=== PATIENT | female | born 1965 | race Caucasian/White ===

== ENCOUNTER 2016-12-21 19:02 | Emergency (ER) | payer MEDICARE, OTHER ==
[~2016-12-21 19:02] MED LIST: CLON0.5T PO; DIVA250T PO; GABA-585 PO; GLIP10TA13 PO; GLIP5TAB10 PO; HYDR25TA9 PO; LOSA50TA6 PO; MIRT7.5T8 PO; PRAZ2CAP2 PO; QUET50TA PO; TRAZ50TA15 PO
[2016-12-21 19:05] VITALS: BP 163/95
--- NOTE | 2016-12-21 19:55 | ED.ADGEN ---
Past Medical History Past Medical History: Bipolar, Diabetes-Type II, High Cholesterol, Hypertension Additional Past Medical Histor: suicidal idealation,homelessness,PTSD Past Surgical History: Cholecystectomy Alcohol Use: None Drug Use: None Adult General Chief Complaint Chief Complaint: HYPERGLYCEMIA HPI HPI Patient is a 51 year old female presents emergency department complaining of hyperglycemia. The patient unfortunately had her refrigerator break in time that was repaired she got to the pharmacy to get more insulin and they did not have any of her diabetic medications. She does have a follow-up appointment with her doctor in 48 hours. Patient denies any symptoms since her blood sugar was reading high. So she decided to come to the emergency department for some fluids and to get her blood sugars down prior to her appointment in 2 days. Other than high blood sugar readings patient has no complaints. Review of Systems Review of Systems Constitutional: Denies fever or chills. [] Eyes: Denies change in visual acuity. [] HENT: Denies nasal congestion or sore throat. [] Respiratory: Denies cough or shortness of breath. [] Cardiovascular: Denies chest pain or edema. [] GI: Denies abdominal pain, nausea, vomiting, bloody stools or diarrhea. [] : Denies dysuria. [] Musculoskeletal: Denies back pain or joint pain. [] Integument: Denies rash. [] Neurologic: Denies headache, focal weakness or sensory changes. [] Endocrine: Denies polyuria or polydipsia. [] Lymphatic: Denies swollen glands. [] Psychiatric: Denies depression or anxiety. [] Current Medications Current Medications Current Medications Medications (Trade) Dose Ordered Sig/Arvind Start Time Stop Time Status Last Admin Dose Admin Insulin Human Regular 10 unit 10 unit 1X ONCE 12/21/16 20:30 12/21/16 20:31 DC 12/21/16 20:40 10 UNIT Sodium Chloride (Iv Sodium Chloride 0.9% 1000ml Bag) 1,000 ml @ 1,000 mls/hr 1X ONCE 12/21/16 21:00 12/21/16 21:59 Allergies Allergies Allergies Coded Allergies Type Severity Reaction Last Updated Verified Sulfa (Sulfonamide Antibiotics) Allergy Intermediate 09/30/15 Yes acetaminophen Allergy Intermediate 09/30/15 Yes clindamycin Allergy Intermediate 09/30/15 Yes doxycycline Allergy Intermediate 09/30/15 Yes exenatide Allergy Intermediate 09/30/15 Yes hydrocodone Allergy Intermediate 09/30/15 Yes metformin Allergy Intermediate 09/30/15 Yes vancomycin Allergy Intermediate 09/30/15 Yes Insulins Allergy Mild "years ago" unknown reaction 12/21/16 Yes Physical Exam Physical Exam Constitutional: Well developed, well nourished, no acute distress, non-toxic appearance. [] HENT: Normocephalic, atraumatic, bilateral external ears normal, oropharynx moist, no oral exudates, nose normal. [] Eyes: PERRLA, EOMI, conjunctiva normal, no discharge. [] Neck: Normal range of motion, no tenderness, supple, no stridor. [] Cardiovascular:Heart rate regular rhythm, no murmur [] Lungs & Thorax: Bilateral breath sounds clear to auscultation [] Abdomen: Bowel sounds normal, soft, no tenderness, no masses, no pulsatile masses. [] Skin: Warm, dry, no erythema, no rash. [] Back: No tenderness, no CVA tenderness. [] Extremities: No tenderness, no cyanosis, no clubbing, ROM intact, no edema. [] Neurologic: Alert and oriented X 3, normal motor function, normal sensory function, no focal deficits noted. [] Psychologic: Affect normal, judgement normal, mood normal. [] Current Patient Data Vital Signs Vital Signs Date Time Temp Pulse Resp B/P Pulse Ox O2 Delivery O2 Flow Rate FiO2 12/21/16 19:05 97.7 86 20 163/95 96 Room Air 97.7 Lab Values Laboratory Tests Test 12/21/16 19:35 12/21/16 20:20 12/21/16 20:26 Glucose (Fingerstick) 524mg/dL (70-99) *H Urine Collection Type Unknown Urine Color Yellow Urine Clarity Clear Urine pH 5.5 Urine Specific [place] 1.015 Urine Protein Negativemg/dL (NEG-TRACE) Urine Glucose (UA) >=1000mg/dL (NEG) Urine Ketones (Stick) Negativemg/dL (NEG) Urine Blood Negative (NEG) Urine Nitrite Negative (NEG) Urine Bilirubin Negative (NEG) Urine Urobilinogen Dipstick 0.2mg/dL (0.2 mg/dL) Urine Leukocyte Esterase Negative (NEG) Urine RBC 0/HPF (0-2) Urine WBC 0/HPF (0-4) Urine Squamous Epithelial Cells Occ/LPF Urine Bacteria 0/HPF (0-FEW) White Blood Count 8.0x10^3/uL (4.0-11.0) Red Blood Count 4.16x10^6/uL (3.50-5.40) Hemoglobin 12.2g/dL (12.0-15.5) Hematocrit 36.3% (36.0-47.0) Mean Corpuscular Volume 87fL (79-100) Mean Corpuscular Hemoglobin 29pg (25-35) Mean Corpuscular Hemoglobin Concent 34g/dL (31-37) Red Cell Distribution Width 13.7% (11.5-14.5) Platelet Count 225x10^3/uL (140-400) Neutrophils (%) (Auto) 61% (31-73) Lymphocytes (%) (Auto) 28% (24-48) Monocytes (%) (Auto) 4% (0-9) Eosinophils (%) (Auto) 5% (0-3) H Basophils (%) (Auto) 1% (0-3) Neutrophils # (Auto) 4.9x10^3uL (1.8-7.7) Lymphocytes # (Auto) 2.2x10^3/uL (1.0-4.8) Monocytes # (Auto) 0.4x10^3/uL (0.0-1.1) Eosinophils # (Auto) 0.4x10^3/uL (0.0-0.7) Basophils # (Auto) 0.1x10^3/uL (0.0-0.2) Sodium Level 134mmol/L (136-145) L Potassium Level 3.6mmol/L (3.5-5.1) Chloride Level 95mmol/L (98-107) L Carbon Dioxide Level 28mmol/L (21-32) Anion Gap 11 (6-14) Blood Urea Nitrogen 16mg/dL (7-20) Creatinine 1.2mg/dL (0.6-1.0) H Estimated GFR (Cockcroft-Gault) 47.7 Glucose Level 487mg/dL (70-99) H Calcium Level 9.5mg/dL (8.5-10.1) Laboratory Tests 12/21/16 20:26 Laboratory Tests 12/21/16 20:26 EKG EKG [] Radiology/Procedures Radiology/Procedures [] Course & Med Decision Making Course & Med Decision Making Pertinent Labs and Imaging studies reviewed. (See chart for details) Overall, the patient had a very reassuring workup. She is hyperglycemic but shows no indication of DKA. She would like to go home. I do not find this to be unreasonable. She will of course return emergency department sooner if she has any new or worsening symptoms. [] Dragon Disclaimer Dragon Disclaimer This electronic medical record was generated, in whole or in part, using a voice recognition dictation system. LIGIA HENDERSON MD Dec 21, 2016 19:55
[2016-12-21] MEDS ORDERED: IV NORMAL SALINE 1000ML BAG 1,000 ML IV ONE ×3 (20:00→21:30)
[2016-12-21 20:28] LABS: BILIRUBIN,URINE NEGATIVE (NEG); GLUCOSE,URINE >=1000 mg/dL (NEG); NITRITE,URINE NEGATIVE (NEG); PH,URINE 5.5; PROTEIN,URINE NEGATIVE (NEG-TRACE); UROBILINOGEN,URINE 0.2 mg/dL (0.2 mg/dL)
[2016-12-21] MEDS ORDERED: INSULIN REGULAR 100 UNIT/ML 10ML VIAL. IV ONE (20:30)
[2016-12-21 20:39] LABS: BASO # 0.1 x10^3/uL (0.0-0.2); BASO % 1 % (0-3); EOS % 5 % (0-3); HEMATOCRIT 36.3 % (36.0-47.0); HEMOGLOBIN 12.2 g/dL (12.0-15.5); LYMPH # 2.2 x10^3/uL (1.0-4.8); LYMPH % 28 % (24-48); MEAN CORPUSCULAR HEMOGLOBIN 29 pg (25-35); MEAN CORPUSCULAR HGB CONC 34 g/dL (31-37); MEAN CORPUSCULAR VOLUME 87 fL (79-100); MONO % 4 % (0-9); NEUT % 61 % (31-73); PLATELET COUNT 225 x10^3/uL (140-400); RED BLOOD COUNT 4.16 x10^6/uL (3.50-5.40); RED CELL DISTRIBUTION WIDTH 13.7 % (11.5-14.5)
[2016-12-21 20:41] LABS: BACTERIA,URINE 0 /HPF (0-FEW); RBC,URINE 0 /HPF (0-2); SQUAMOUS EPITHELIAL CELL,UR OCC /LPF; WBC,URINE 0 /HPF (0-4)
[2016-12-21 20:54] LABS: CALCIUM 9.5 mg/dL (8.5-10.1); CREATININE 1.2 mg/dL (0.6-1.0); GFR 47.7; POTASSIUM 3.6 mmol/L (3.5-5.1)
--- NOTE | 2016-12-22 12:58 | EKG ---
[facility] [address] [place] [address] Test Date: 2016-12-21 Test Time: 19:41:48 Pat Name: ELIZABETH KAM Department: Room: Gender: F Heating Operators Engineer: : 1965 Requested By: LIGIA HENDERSON Order Number: [id number] Reading MD: Measurements Intervals [place] Rate: 94 P: 43 ND: 214 QRS: -30 QRSD: 98 T: 47 QT: 374 QTc: 468 Interpretive Statements SINUS RHYTHM PROLONGED ND INTERVAL ABNORMAL LEFT AXIS DEVIATION R-S TRANSITION ZONE IN V LEADS DISPLACED TO THE LEFT ABNORMAL ECG RI6.01 No previous ECG available for comparison
== END 2016-12-21 21:57 | disposition home or self-care (01) ==
LOC: ER 19:02
DX: E11.65 Type 2 diabetes mellitus with hyperglycemia (principal); E78.00 Pure hypercholesterolemia, unspecified; I10 Essential (primary) hypertension; F43.10 Post-traumatic stress disorder, unspecified; F31.9 Bipolar disorder, unspecified; Z90.49 Acquired absence of other specified parts of digestive tract; Z79.4 Long term (current) use of insulin; Z88.2 Allergy status to sulfonamides; Z88.1 Allergy status to other antibiotic agents; Z88.6 Allergy status to analgesic agent; Z88.5 Allergy status to narcotic agent; Z88.8 Allergy status to other drugs, medicaments and biological substances
CPT/HCPCS: 36415; 80048; 81001; 82947; 85027; 93005; 96361; 96374; 99285; J7030; J1815

== ENCOUNTER 2017-01-17 19:20 | Inpatient (IN) | payer MEDICARE, OTHER ==
[~2017-01-17] VITALS: Ht 170.2 cm; Wt 102.1 kg
[2017-01-17] MEDS ORDERED: IV NORMAL SALINE 1000ML BAG 1,000 ML IV ONE (20:00)
[2017-01-17] MEDS ORDERED: fentaNYL PF VIAL 100 MCG/2 ML VIAL IV PRN ×2 (20:00→21:30)
[2017-01-17 20:10] LABS: BASO # 0.1 x10^3/uL (0.0-0.2); BASO % 1 % (0-3); BILIRUBIN,URINE NEGATIVE (NEG); EOS % 4 % (0-3); GLUCOSE,URINE >=1000 mg/dL (NEG); HEMATOCRIT 36.2 % (36.0-47.0); HEMOGLOBIN 12.4 g/dL (12.0-15.5); LYMPH # 2.1 x10^3/uL (1.0-4.8); LYMPH % 23 % (24-48); MEAN CORPUSCULAR HEMOGLOBIN 30 pg (25-35); MEAN CORPUSCULAR HGB CONC 34 g/dL (31-37); MEAN CORPUSCULAR VOLUME 87 fL (79-100); MONO % 5 % (0-9); NEUT % 68 % (31-73); NITRITE,URINE NEGATIVE (NEG); PLATELET COUNT 218 x10^3/uL (140-400); PROTEIN,URINE NEGATIVE (NEG-TRACE); RED BLOOD COUNT 4.18 x10^6/uL (3.50-5.40); RED CELL DISTRIBUTION WIDTH 13.4 % (11.5-14.5); UROBILINOGEN,URINE 0.2 mg/dL (0.2 mg/dL); WHITE BLOOD COUNT 9.1 x10^3/uL (4.0-11.0)
[2017-01-17 20:17] LABS: BACTERIA,URINE FEW /HPF (0-FEW); RBC,URINE 0 /HPF (0-2); SQUAMOUS EPITHELIAL CELL,UR FEW /LPF; WBC,URINE 0 /HPF (0-4)
[2017-01-17 20:40] LABS: CALCIUM 9.4 mg/dL (8.5-10.1); CREATININE 1.5 mg/dL (0.6-1.0); GFR 36.8; MAGNESIUM 1.7 mg/dL (1.8-2.4); PHOSPHORUS 3.7 mg/dL (2.6-4.7); POTASSIUM 3.7 mmol/L (3.5-5.1)
[2017-01-17] MEDS ORDERED: INSULIN REGULAR VIAL 150 UNIT in 0.9 % SODIUM CHLORIDE 150ML 150 ML IV PRN (21:15)
[2017-01-17] MEDS ORDERED: POTASSIUM CHLORIDE 10MEQ 100 ML IV PRN ×2 (21:15)
[2017-01-17] MEDS ORDERED: ONDANSETRON PF 4 MG/2 ML VIAL. IV PRN (21:30)
[2017-01-17] MEDS ORDERED: IV 1/2 NORMAL SALINE 1,000 ML IV SCH (22:00)
[2017-01-17 22:09] VITALS: BP 136/83
[2017-01-17] MEDS ORDERED: IV NORMAL SALINE 1000ML BAG 1,000 ML IV SCH (22:30)
[2017-01-17] MEDS ORDERED: traZODone 50 MG TABLET. PO PRN (22:30)
--- NOTE | 2017-01-17 23:35 | PHYS DOC ---
Past Medical History Past Medical History: Bipolar, Diabetes-Type II, High Cholesterol, Hypertension Additional Past Medical Histor: PTSD Past Surgical History: Cholecystectomy Alcohol Use: None Drug Use: None Adult General Chief Complaint Chief Complaint: HYPERGLYCEMIA HPI HPI Patient is a 52 year old female who presents with hyperglycemia. The patient has history of insulin dependent diabetes using insulin pen unknown name. She states 1 week ago she packed boxes to move to a new home, lost insulin needles at that time. She says she uses insulin PRN sliding scale but has been unable to administer since that time. Today glucometer reading "high" which is > 600. She reports polyuria & polydipsia. She denies fevers/chills, chest pain, SOB , abdominal pain, vomiting, edema. PCP is Dr. Bey. Review of Systems Review of Systems Constitutional: Denies fever or chills Eyes: Denies change in visual acuity HENT: Denies nasal congestion or sore throat Respiratory: Denies cough or shortness of breath Cardiovascular: Denies chest pain or edema GI: Denies abdominal pain, nausea, vomiting, or diarrhea : Denies dysuria or hematuria Endocrine: reports polyuria & polydipsia. Musculoskeletal: Denies back pain or joint pain Integument: Denies rash or skin lesions Neurologic: Denies headache, focal weakness or sensory changes Current Medications Current Medications Current Medications Medications (Trade) Dose Ordered Sig/Arvind Start Time Stop Time Status Last Admin Dose Admin Fentanyl Citrate (Fentanyl 2ml Vial) 50 mcg PRN Q15MIN PRN 01/17/17 20:00 01/18/17 19:59 01/17/17 20:15 50 MCG Sodium Chloride 1,000 ml @ 1,000 mls/hr 1X ONCE 01/17/17 20:00 01/17/17 20:59 DC 01/17/17 20:15 1,000 MLS/HR Allergies Allergies Allergies Coded Allergies Type Severity Reaction Last Updated Verified Sulfa (Sulfonamide Antibiotics) Allergy Intermediate 09/30/15 Yes acetaminophen Allergy Intermediate 09/30/15 Yes clindamycin Allergy Intermediate 09/30/15 Yes doxycycline Allergy Intermediate 09/30/15 Yes exenatide Allergy Intermediate 09/30/15 Yes hydrocodone Allergy Intermediate 09/30/15 Yes metformin Allergy Intermediate 09/30/15 Yes vancomycin Allergy Intermediate 09/30/15 Yes Insulins Allergy Mild "years ago" unknown reaction 12/21/16 Yes Physical Exam Physical Exam Constitutional: obese, no acute distress, non-toxic appearance. HENT: Normocephalic, atraumatic, bilateral external ears normal, oropharynx moist, nose normal. Eyes: PERRLA, EOMI, conjunctiva normal, no discharge. Neck: supple, no stridor. Cardiovascular: RRR, no murmurs, no edema. Lungs & Thorax: LCTAB, no wheezing, no respiratory distress. Abdomen: soft, nontender, nondistended. Skin: Warm, dry, no erythema, no rash. Back: No tenderness. Extremities: No tenderness, no edema. Neurologic: Alert and oriented X 3, no focal deficits noted. Psychologic: Affect normal, judgement normal, mood normal. Current Patient Data Vital Signs Vital Signs Date Time Temp Pulse Resp B/P (MAP) Pulse Ox O2 Delivery O2 Flow Rate FiO2 01/17/17 20:15 82 16 136/66 (89) 94 01/17/17 19:35 98.1 Room Air 98.1 Lab Values Laboratory Tests Test 01/17/17 19:50 White Blood Count 9.1 x10^3/uL (4.0-11.0) Red Blood Count 4.18 x10^6/uL (3.50-5.40) Hemoglobin 12.4 g/dL (12.0-15.5) Hematocrit 36.2 % (36.0-47.0) Mean Corpuscular Volume 87 fL (79-100) Mean Corpuscular Hemoglobin 30 pg (25-35) Mean Corpuscular Hemoglobin Concent 34 g/dL (31-37) Red Cell Distribution Width 13.4 % (11.5-14.5) Platelet Count 218 x10^3/uL (140-400) Neutrophils (%) (Auto) 68 % (31-73) Lymphocytes (%) (Auto) 23 % (24-48) L Monocytes (%) (Auto) 5 % (0-9) Eosinophils (%) (Auto) 4 % (0-3) H Basophils (%) (Auto) 1 % (0-3) Neutrophils # (Auto) 6.2 x10^3uL (1.8-7.7) Lymphocytes # (Auto) 2.1 x10^3/uL (1.0-4.8) Monocytes # (Auto) 0.4 x10^3/uL (0.0-1.1) Eosinophils # (Auto) 0.3 x10^3/uL (0.0-0.7) Basophils # (Auto) 0.1 x10^3/uL (0.0-0.2) Urine Collection Type Unknown Urine Color Straw Urine Clarity Clear Urine pH 6.0 Urine Specific [place] 1.020 Urine Protein Negative mg/dL (NEG-TRACE) Urine Glucose (UA) >=1000 mg/dL (NEG) Urine Ketones (Stick) Negative mg/dL (NEG) Urine Blood Negative (NEG) Urine Nitrite Negative (NEG) Urine Bilirubin Negative (NEG) Urine Urobilinogen Dipstick 0.2 mg/dL (0.2 mg/dL) Urine Leukocyte Esterase Negative (NEG) Urine RBC 0 /HPF (0-2) Urine WBC 0 /HPF (0-4) Urine Squamous Epithelial Cells Few /LPF Urine Bacteria Few /HPF (0-FEW) Sodium Level 124 mmol/L (136-145) L Potassium Level 3.7 mmol/L (3.5-5.1) Chloride Level 87 mmol/L (98-107) L Carbon Dioxide Level 27 mmol/L (21-32) Anion Gap 10 (6-14) Blood Urea Nitrogen 26 mg/dL (7-20) H Creatinine 1.5 mg/dL (0.6-1.0) H Estimated GFR (Cockcroft-Gault) 36.8 Glucose Level 736 mg/dL (70-99) *H Calcium Level 9.4 mg/dL (8.5-10.1) Phosphorus Level 3.7 mg/dL (2.6-4.7) Magnesium Level 1.7 mg/dL (1.8-2.4) L Laboratory Tests 01/17/17 19:50 Laboratory Tests 01/17/17 19:50 EKG EKG [] Radiology/Procedures Radiology/Procedures [] Course & Med Decision Making Course & Med Decision Making Pertinent Labs and Imaging studies reviewed. (See chart for details) Patient presents with hyperglycemia. She has been noncompliant with insulin. Denies any other complaints. On BMP glucose is > 700, no anion gap or acidosis , no ketonuria. Not DKA but significantly hyperglycemic. Gave 1L NS bolus here during initial workup. Recommend admission to the hospital for further evaluation & treatment. The patient agrees with plan of care. Discussed with Dr. Rodrigues who agrees to admit to inpatient status on behalf of Dr. Bey. Agrees with initiation of insulin gtt & DKA protocol for extreme hyperglycemia. Patient admitted in stable condition. Critical care time: 35 minutes [] Dragon Disclaimer Dragon Disclaimer This electronic medical record was generated, in whole or in part, using a voice recognition dictation system. Departure Departure Impression: Primary Impression: Hyperglycemia Additional Impressions: Hyponatremia Hypochloremia Hypomagnesemia Disposition: ADMITTED INPATIENT Admitting Physician: Manuel Bey Condition: STABLE Referrals: MANUEL BEY MD (PCP) Problem Qualifiers KEEGAN AHUMADA MD January 17, 2017 23:35
[2017-01-17 23:47] LABS: CALCIUM 9.4 mg/dL (8.5-10.1); CREATININE 1.2 mg/dL (0.6-1.0); GFR 47.6; MAGNESIUM 1.6 mg/dL (1.8-2.4); POTASSIUM 3.4 mmol/L (3.5-5.1)
--- NOTE | 2017-01-17 23:54 | EKG ---
[facility] [address] [place] [address] Test Date: 2017-01-17 Test Time: 22:46:58 Pat Name: ELIZABETH KAM Department: Room: 9 Gender: F Converting Operator: SUMIT : 1965 Requested By: SAM BUTLER Order Number: [id number] Reading MD: Sharonda Romeo Measurements Intervals [place] Rate: 77 P: 50 MD: 228 QRS: -24 QRSD: 100 T: 40 QT: 338 QTc: 384 Interpretive Statements SINUS RHYTHM PROLONGED MD INTERVAL LEFTWARD AXIS QRS(T) CONTOUR ABNORMALITY CONSIDER ANTEROSEPTAL MYOCARDIAL DAMAGE ABNORMAL ECG Electronically Signed On 01-19-2017 18:08:21 CDT by Sharonda Romeo
[2017-01-18] MEDS: ENOXAPARIN 40 MG/0.4 ML SYRINGE. SQ SCH ×2 (00:11→00:15)
[2017-01-18] MEDS: POTASSIUM CHLORIDE 10MEQ 100 ML IV PRN ×2 (00:18→01:56)
[2017-01-18] MEDS ORDERED: QUET200T4 PO (00:51)
[2017-01-18] MEDS ORDERED: METF500T4 PO (00:51)
[2017-01-18] MEDS ORDERED: LOSA1TAB17 PO (00:51)
[2017-01-18] MEDS ORDERED: FENO145T2 PO (00:52)
[2017-01-18] MEDS ORDERED: LITH450T PO (00:54)
--- NOTE | 2017-01-18 00:56 | ACF ---
Admission Forms Criteria DIABETES Clinical Indications for Admission to Inpatient Care (Place 'X' for any and all applicable criteria): Admission is indicated by presence of ALL (if I & II) or ANY ONE (if III or IV) of the following (1)(2)(3)(4): [X]I. Diabetes is uncontrolled as indicated by ANY ONE of the following: [ ]a) Diabetic ketoacidosis as indicated by ALL of the following (8): [ ]i) Hyperglycemia (eg, plasma glucose greater than 200 mg/ dL (11.1 mmol/L)) [ ]ii) Acidosis (eg, arterial pH less than 7.30, serum bicarbonate level less than 15 mEq/L (mmol/L)) [ ]iii) Moderate ketonuria or ketonemia [ ]b) Hyperglycemic hyperosmolar state as indicated by ALL of the following(9)(10): [ ]i) Neurologic dysfunction (eg, stupor, coma, hemiparesis , seizure)(13) [ ]ii) Plasma glucose greater than 600 mg/dL (33.3 mmol/L) [ ]iii) Serum osmolality greater than 320 mOsm/kg (mmol/kg) [X]c) Severe signs or symptoms secondary to hyperglycemia indicated by ANY ONE of the following: [ ]i) Altered mental status(10) [ ]ii) Significant hypovolemia or dehydration [ ]iii) Intractable nausea or vomiting [ ]iv) Unexplained fever or severe infection [X]v) Severe electrolyte abnormality (eg, hypokalemia, hyperkalemia, hypernatremia) [X]II. Management at other levels of care (Also use Diabetes: Observation Care as appropriate) is not feasible because of ANY ONE of the following: [ ]a) Condition was not adequately corrected with treatment at other levels of care. [X]b) Treatment at other levels of care is not appropriate because of condition severity (eg, hyperosmolar coma). [ ]III. Contraindications and/or Inappropriate clinical situations for Observational Care in patients with Diabetes, when ANY ONE of the following is required: [ ]a) Patient require specific diagnostic workup or therapeutic intervention 22 [ ]b) Patient with abnormal vital signs or altered mental status 23 [ ]IV. General contraindications and/or Inappropriate clinical situations for Observational Care in patients with Diabetes, when ANY ONE of the following is required: [ ]a) Prediction of prolongation of LOS based on ANY ONE of the following may be considered as a contraindication for observational care 2, 3, 4, 5, 6, 7, 8, 9, 10, 11 [ ]i) Age > 65 yrs. [ ]ii) Patient arriving by ambulance [ ]iii) Patient with high acuity [ ]iv) Patient requiring vital sign monitoring [ ]v) Patient on IV medication [ ]b) Systolic blood pressures 180mmHg 3,12 [ ]c) Patient with altered mental status including delirium and other alteration of consciousness, (3) [ ]d) Patient whose discharge disposition will be to a retirement home or rehabilitation home should not be managed in Emergency Department Observation Unit. CMS rule requires 3 days hospital stay before such placement.3,13 [ ]e) Patient with failure to thrive due to broad array of etiologies 3,16,17 [ ]f) Inability to ambulate 3,14 Extended stay beyond goal length of stay may be needed for(3)(20): [ ]a) Treatment of precipitating causes [ ]b) Development of hypoglycemia [ ]c) Complications of treatment [ ]d) Complications of decompensated diabetes (eg, acute gastric dilatation, persistent metabolic or neurologic derangement) [ ]e) Active Comorbidities [ ]f) Older patients( 65 years or older) The original [email or web address] content created by [email or web address] has been revised. The portions of the content which have been revised are identified through the use of italic text or in bold,and [facility] has neither reviewed nor approved the modified material. All other unmodified content is copyright [email or web address]. Please see references footnoted in the original [facility] edition 2016 Admission Criteria Met?: Yes IRVING NICHOLAS January 18, 2017 00:56
[2017-01-18 03:00] VITALS: BP 128/76
[2017-01-18 05:46] LABS: BASO # 0.1 x10^3/uL (0.0-0.2); BASO % 1 % (0-3); EOS % 5 % (0-3); HEMATOCRIT 35.9 % (36.0-47.0); LYMPH # 3.2 x10^3/uL (1.0-4.8); LYMPH % 32 % (24-48); MEAN CORPUSCULAR HEMOGLOBIN 29 pg (25-35); MEAN CORPUSCULAR HGB CONC 33 g/dL (31-37); MEAN CORPUSCULAR VOLUME 88 fL (79-100); MONO % 5 % (0-9); NEUT % 58 % (31-73); PLATELET COUNT 233 x10^3/uL (140-400); RED BLOOD COUNT 4.11 x10^6/uL (3.50-5.40); RED CELL DISTRIBUTION WIDTH 13.5 % (11.5-14.5)
[2017-01-18 06:31] LABS: ALBUMIN 3.4 g/dL (3.4-5.0); ALBUMIN/GLOBULIN RATIO 1.1 (1.0-1.7); CALCIUM 9.4 mg/dL (8.5-10.1); GFR 58.7; MAGNESIUM 1.6 mg/dL (1.8-2.4); POTASSIUM 3.5 mmol/L (3.5-5.1); TOTAL BILIRUBIN 0.3 mg/dL (0.2-1.0); TOTAL PROTEIN 6.6 g/dL (6.4-8.2)
[2017-01-18 06:35] LABS: CHOLESTEROL/HDL RATIO 7.3
[2017-01-18 07:00] VITALS: BP 110/65
[2017-01-18] MEDS: GABAPENTIN 100 MG CAPSULE. PO SCH ×2 (08:59→14:00)
[2017-01-18] MEDS ORDERED: QUEtiapine 25 MG TABLET. PO SCH (09:00)
[2017-01-18] MEDS ORDERED: LOSARTAN POTASSIUM 50 MG TABLET. PO SCH (09:00)
[2017-01-18] MEDS ORDERED: MIRTAZAPINE 7.5 MG TABLET. PO SCH (09:00)
--- NOTE | 2017-01-18 10:11 | RAD ---
Indication hyperglycemia. Protocol study. A single view of the chest was obtained and is compared to an exam 03/01/2016. Heart size is slightly enlarged but unchanged. There is no congestive heart failure. There is no focal infiltrate significant pleural fluid collection or pneumothorax. Overall a significant change in the appearance of the chest is not seen. IMPRESSION: No acute finding. No significant change
[2017-01-18] MEDS ORDERED: INSULIN DETEMIR 300 UNITS/3 ML INSULN.PEN. SQ STA (10:40)
--- NOTE | 2017-01-18 10:58 | PDOC ---
Provider Note Provider Note Pt seen.H&P dictated. #[id number] SAM BUTLER MD January 18, 2017 10:58
[2017-01-18 11:00] VITALS: BP 108/73
[2017-01-18] MEDS ORDERED: POTASSIUM CHLORIDE 20 MEQ TABLET.ER. PO ONE (11:00)
[2017-01-18] MEDS ORDERED: INSULIN DETEMIR 300 UNITS/3 ML INSULN.PEN. SQ SCH ×2 (11:00→21:00)
[2017-01-18] MEDS ORDERED: DEXTROSE 50% 25 GM / 50ML DISP.SYRIN. IV PRN ×2 (11:00)
[2017-01-18] MEDS ORDERED: MAGNESIUM SULFATE 2GM 50 ML IV ONE (11:00)
[2017-01-18] MEDS ORDERED: QUEtiapine 100 MG TABLET. PO SCH (11:15)
[2017-01-18 11:17] LABS: LI 0.6 mmol/L (0.6-1.2)
[2017-01-18] MEDS ORDERED: INSULIN ASPART 300 UNITS/3 ML INSULN.PEN SQ SCH (11:30)
[2017-01-18] MEDS ORDERED: LITHIUM CARBONATE 150 MG CAPSULE. PO SCH (11:30)
[2017-01-18] MEDS ORDERED: FENOFIBRATE,MICRONIZED 134 MG CAPSULE PO SCH (12:00)
[2017-01-18] MEDS: INSULIN ASPART 300 UNITS/3 ML INSULN.PEN SQ SCH ×4 (12:00→17:18)
--- NOTE | 2017-01-18 14:28 | HP ---
ADMIT DATE: 01/18/2017 PATIENT LOCATION: [facility]. REASON FOR ADMISSION TO THE HOSPITAL: Uncontrolled diabetes with blood sugar more than 700, type 2 diabetes. HISTORY OF PRESENT ILLNESS: The patient is a 52-year-old female, the patient of Dr. Manuel Freeman with history of diabetes for 10 years, seen in Dr. Freeman's office last month, was given insulin, but the patient is not taking the insulin and sugar was very high, called in yesterday, asked her to come to the Emergency Room, sugar was 700 and above. The patient was started on insulin drip and was admitted to the floor. Sodium was low at 124 and the patient is not in DKA, but was admitted to the hospital. PAST MEDICAL HISTORY: History of diabetes type 2, hypertension, hyperlipidemia, obesity and PTSD. PAST SURGICAL HISTORY: Gallbladder surgery. The patient says she has been diabetic for 10 years, taking medications, glipizide. ALLERGIES: TO SULFA, TYLENOL, CLINDAMYCIN, DOXYCYCLINE, HYDROCODONE, VANCOMYCIN, HEXETIDINE. FAMILY HISTORY: Positive for diabetes, hypertension. SOCIAL HISTORY: Denies smoking, alcohol or drug abuse. MEDICATIONS AT HOME: Glipizide 5 mg twice a day, metformin 500 mg twice a day, fenofibrate 1 daily, lithium 450 mg twice a day, losartan 100/25 daily and Seroquel 200 mg at bedtime. REVIEW OF SYMPTOMS: Complains of frequent urination and denies any chest pain, shortness of breath. Rest of the 14 systems was reviewed and negative. PHYSICAL EXAMINATION: GENERAL: The patient is not in any distress. VITAL SIGNS: At the time of admission shows temperature 98, pulse 95, respirations 16, blood pressure 170/97 and 95% on room air. HEENT: Head is atraumatic. Pupils equal. Oral cavity: No congestion. NECK: Supple. Thyroid not enlarged. CHEST: Symmetrical. CARDIOVASCULAR: S1, S2. LUNGS: Clear to auscultation. ABDOMEN: Soft. There is no mass palpable. EXTERNAL GENITALIA: No Morrison. RECTAL: Deferred. EXTREMITIES: No calf tenderness, no edema. Pulses 1+. NEUROLOGIC: Cranial nerves intact. Power 5/5 in all extremities. LABORATORY DATA: Shows a white count of 9, hemoglobin 12, platelets 218. Electrolytes show sodium 124, potassium 3.7, chloride 87, bicarbonate 27, anion gap 10, BUN 26, creatinine 1.5, blood sugar 736, magnesium 1.7. Urine shows a lot of sugar in the urine, negative for nitrites, esterase. Chest x-ray: No acute abnormality. EKG done, report is pending. FINAL IMPRESSION: 1. Uncontrolled blood sugars BAS more than 700. 2. Type 2 diabetes uncontrolled. 3. Hyponatremia secondary to high blood sugars. 4. Hypertension. 5. History of schizophrenia. PLAN: At this time, admit to hospital, hydrated with IV fluids, was put on insulin drip to control the blood sugars, IV fluids to control hyponatremia and monitor electrolytes periodically. Replace magnesium, A1c. Diabetic education and sliding scale insulin and see how she does. SAM BUTLER MD DR: PEREZ/edwige JOB#: [id number] / [id number] MANUEL López MDD
[2017-01-18 15:00] VITALS: BP 124/80
[2017-01-18] MEDS ORDERED: glipiZIDE 5 MG TABLET PO SCH (16:30)
[2017-01-18] MEDS ORDERED: METFORMIN 500 MG TABLET. PO SCH (17:00)
[2017-01-18] MEDS ORDERED: DIVALPROEX EXTENDED RELEASE 250 MG TAB.ER.24H. PO SCH (21:00)
[2017-01-19] MEDS ORDERED: LOSARTAN POTASSIUM 50 MG TABLET. PO SCH (09:00)
[2017-01-19] MEDS ORDERED: HYDROCHLOROTHIAZIDE 25 MG TABLET PO SCH (09:00)
--- NOTE | 2017-01-21 10:07 | PDOC ---
Provider Note Provider Note Discharge summary dictated. #[id number]. Pt left AMA. SAM BUTLER MD January 21, 2017 10:07
--- NOTE | 2017-01-21 11:39 | DS ---
DATE OF DISCHARGE: 01/18/2017 ATTENDING PHYSICIAN: Manuel Freeman MD. The patient left against medical advice. REASON FOR ADMISSION TO THE HOSPITAL: Uncontrolled blood sugars, more than 700, hyperosmolar diabetic condition. HOSPITAL COURSE: The patient is a 52-year-old female with history of diabetes type 2. She has been seen in the doctor's office a month ago, as per the patient, was given insulin pens, but she is not taking insulin. She came in because her fingersticks randomly shows more than very high 500s, came to the Emergency Room. Her sugar was 736 without any anion gap or metabolic acidosis. The patient's sodium was low at 124. The patient was given insulin drip, IV fluids. Electrolytes were replaced, magnesium and calcium, and the sugars came down nicely to 150. She has history of psychotic problem, schizophrenia and she is anxious to go home. She says she has both types of insulin at home . she wanted to leave the hospital. She went against the medical advice. Her A1c was 10.5. Cholesterol 190, LDL 67 with HDL 26. TSH is 4.1 and creatinine came down from 1.5 to 1.0. Sodium from 124 to 136 at the time of discharge. FINAL DIAGNOSES: 1. Uncontrolled blood sugars, more than 700. 2. Non-ketotic hyperosmolar uncontrolled sugars. 3. Hyponatremia secondary to high blood sugars. 4. Acute kidney insufficiency secondary to uncontrolled blood sugars and dehydration. 5. Hyperlipidemia. 6. Schizophrenia. DISPOSITION: The patient left the hospital against medical advice. The patient is instructed to check sugars and take insulin sliding scale daily. Follow with primary care physician, Dr. Freeman in the next 24-48 hours. SAM BUTLER MD DR: PEREZ/edwige JOB#: [id number] / [id number] MANUEL López MD [facility]
== END 2017-01-18 18:28 | disposition home or self-care (01) | DRG 682 ==
LOC: ER 19:20 → 5 SOUTH 21:05
PROVIDERS: ADMIT Internal Medicine; ATTEND Internal Medicine
DX: N17.9 Acute kidney failure, unspecified (principal); E11.00 Type 2 diabetes mellitus with hyperosmolarity without nonketotic hyperglycemic-hyperosmolar coma (NKHHC); E87.1 Hypo-osmolality and hyponatremia; E11.65 Type 2 diabetes mellitus with hyperglycemia; E66.9 Obesity, unspecified; R63.1 Polydipsia; R35.8 Other polyuria; E78.00 Pure hypercholesterolemia, unspecified; E78.5 Hyperlipidemia, unspecified; E83.42 Hypomagnesemia; E87.8 Other disorders of electrolyte and fluid balance, not elsewhere classified; F43.10 Post-traumatic stress disorder, unspecified; F20.9 Schizophrenia, unspecified; I10 Essential (primary) hypertension; F31.9 Bipolar disorder, unspecified; Z88.2 Allergy status to sulfonamides; Z88.8 Allergy status to other drugs, medicaments and biological substances; Z79.4 Long term (current) use of insulin; Z90.49 Acquired absence of other specified parts of digestive tract; Z88.6 Allergy status to analgesic agent; Z88.1 Allergy status to other antibiotic agents; Z88.5 Allergy status to narcotic agent; Z82.49 Family history of ischemic heart disease and other diseases of the circulatory system; Z83.3 Family history of diabetes mellitus; Z68.35 Body mass index [BMI] 35.0-35.9, adult
CPT/HCPCS: 36415; 71010; 80048; 80053; 80061; 80178; 81001; 82947; 83036; 83605; 83735; 83930; 83935; 84100; 84443; 84484; 85027; 93005; 96361; 96374; 96375; J1650; J1815; J2405; J3010; J3480; J7030; J7060; 99291-25

== ENCOUNTER → 2017-08-19 | Outpatient (CLI) | payer MEDICARE, OTHER ==
[~2017-08-19] MED LIST changes: +FENO145T2 PO; +LITH450T PO; +LOSA1TAB22 PO; +METF500T4 PO; +QUET200T4 PO
--- NOTE | 2017-08-19 11:03 | RAD ---
Right shoulder, 3 views, 08/19/2017: History: Shoulder pain No fracture or dislocation is identified. There is minimal degenerative change at the AC joint. The periarticular soft tissues are unremarkable. IMPRESSION: 1. Demineralization. 2. No acute bony abnormality is detected.
== END | disposition home or self-care (01) ==
LOC: RAD 10:32
PROVIDERS: ATTEND Internal Medicine Gastroenterology
DX: M25.511 Pain in right shoulder (principal); M81.0 Age-related osteoporosis without current pathological fracture
CPT/HCPCS: 73030

== ENCOUNTER 2021-11-26 17:05 | Emergency (ER) | payer MEDICARE ==
[~2021-11-26] VITALS: Ht 170.2 cm; Wt 80.9 kg
[~2021-11-26 17:05] MED LIST changes: -FENO145T2 PO; +FENO145T3 PO; +HYDR-2145 PO; -HYDR25TA9 PO; +INSU100V8 SQ; +LAMO150T4 PO; +LANS30TA6 PO; +LIDO700A21 TD; +LOSA-73 PO; -LOSA50TA6 PO; +METF500T16 PO; -METF500T4 PO; +OXYC5TAB4 PO; +POTA20TA4 PO; +QUET400T4 PO; -QUET50TA PO; +QUET50TA3 PO; +RISP3TAB56 PO; +TAMS0.4C97 PO; +TRAZ-118 PO; -TRAZ50TA15 PO
[2021-11-26] MEDS ORDERED: IBUPROFEN 200 MG TABLET. PO ONE (18:00)
[2021-11-26] MEDS ORDERED: hydroCHLOROthiazide 12.5 MG CAPSULE PO ONE (18:00)
[2021-11-26] MEDS ORDERED: hydroCHLOROthiazide 25 MG TABLET PO ONE (18:00)
[2021-11-26] MEDS ORDERED: LOSARTAN POTASSIUM 50 MG TABLET. PO ONE (18:00)
[2021-11-26] MEDS ORDERED: LOSA1TAB12 PO (18:08)
--- NOTE | 2021-11-26 18:09 | PHYS DOC ---
Past Medical History Past Medical History: Bipolar, Diabetes-Type II, High Cholesterol, Hypertension Additional Past Medical Histor: PTSD Past Surgical History: No Surgical History Smoking Status: Former Smoker Alcohol Use: None Drug Use: None General Adult EDM: Chief Complaint: HEADACHE HPI: HPI: Patient is a 56-year-old female who presents to the emergency department complaining of needing a refill for her losartan/hydrochlorothiazide 100/25 mg high blood pressure medications. Patient reports she has been out for the past 2 months and has recently moved into this area of [facility], reports she has not had a chance to establish primary care in the area. Patient is asking for a refill for this medication and recommendations for area healthcare providers. Patient reports that she has been experiencing intermittent headaches that she associates with her high blood pressure. Patient denies any thunderclap onset or worst headache of her life. Patient states she does not have any epgl-cuo-rckwsso Tylenol or Motrin to treat her headache pains. Patient denies chest pains, chest palpitations, chest or nasal congestion, denies recent fever or chills, denies dizziness, syncopal or near syncopal episodes, denies visual disturbances. Patient denies other physical complaints or physical concerns. Review of Systems: Review of Systems: 14 body systems of review of systems have been reviewed. See HPI for pertinent positives and negative responses, otherwise all other systems are negative, nonpertinent or noncontributory. Constitutional: Negative except as outlined in HPI above. Skin: Negative except as outlined in HPI above. Eyes: Negative except as outlined in HPI above. HENT: Negative except as outlined in HPI above. Respiratory: Negative except as outlined in HPI above. Cardiovascular: Negative except as outlined in HPI above. GI: Negative except as outlined in HPI above. : Negative except as outlined in HPI above. Musculoskeletal: Negative except as outlined in HPI above. Integument: Negative except as outlined in HPI above. Neurologic: Negative except as outlined in HPI above. Endocrine: Negative except as outlined in HPI above. Lymphatic: Negative except as outlined in HPI above. Psychiatric: Negative except as outlined in HPI above. Heart Score: C/O Chest Pain: No Risk Factors: Risk Factors: DM, Current or recent (<one month) smoker, HTN, HLP, family history of CAD, obesity. Risk Scores: Score 0 - 3: 2.5% MACE over next 6 weeks - Discharge Home Score 4 - 6: 20.3% MACE over next 6 weeks - Admit for Clinical Observation Score 7 - 10: 72.7% MACE over next 6 weeks - Early Invasive Strategies Current Medications: Current Medications Medications (Trade) Dose Ordered Sig/Arvind Start Time Stop Time Status Last Admin Dose Admin Hydrochlorothiazide (Hydrodiuril) 25 mg 1X ONCE 11/26/21 18:00 11/26/21 18:01 11/26/21 17:47 25 MG Hydrochlorothiazide (Microzide) 25 mg 1X ONCE 11/26/21 18:00 11/26/21 18:01 Cancel Ibuprofen (Motrin) 600 mg 1X ONCE 11/26/21 18:00 11/26/21 18:01 11/26/21 17:47 600 MG Losartan Potassium (Cozaar) 100 mg 1X ONCE 11/26/21 18:00 11/26/21 18:01 11/26/21 17:46 100 MG Allergies: Allergies: Allergies Coded Allergies Type Severity Reaction Last Updated Verified Sulfa (Sulfonamide Antibiotics) Allergy Intermediate 09/27/21 Yes acetaminophen Allergy Intermediate 09/27/21 Yes clindamycin Allergy Intermediate 09/27/21 Yes doxycycline Allergy Intermediate 09/27/21 Yes exenatide Allergy Intermediate 09/27/21 Yes hydrocodone Allergy Intermediate 09/27/21 Yes vancomycin Allergy Intermediate 09/30/15 Yes Physical Exam: PE: Constitutional: Well developed, well nourished, no acute distress, non-toxic appearance. 56-year-old female in no apparent distress. HENT: Normocephalic, atraumatic. Eyes: Conjunctiva normal, no discharge. Neck: Normal range of motion, no stridor. Cardiovascular: No cyanosis appreciated, distal cap refill less than 2 seconds. Lungs & Thorax: Patient is in no respiratory distress, no audible adventitious lung sounds appreciated. Abdomen: Nontender, no abnormalities noted. Skin: Warm, dry, no erythema, no rash. Back: No tenderness, no deformities. Extremities: No tenderness, no cyanosis, no clubbing, ROM intact, no edema. Neurologic: Alert and oriented X 3, normal motor function, normal sensory function, no focal deficits noted. Psychologic: Affect normal, judgement normal, mood normal. Current Patient Data: Vital Signs: Vital Signs Date Time Temp Pulse Resp B/P (MAP) Pulse Ox O2 Delivery O2 Flow Rate FiO2 11/26/21 17:46 90 175/100 11/26/21 17:13 98.3 18 99 Room Air 98.3 EKG: EKG: [] Radiology/Procedures: Radiology/Procedures: [] Course & Med Decision Making: Course & Med Decision Making Pertinent Labs and Imaging studies reviewed. (See chart for details) 56-year-old female, vital signs reviewed, presents to the emergency department concerning high blood pressure medication refill. Patient's physical examination is unremarkable, does present with hypertension however normal heart rate, oral temperature, respirations, and room air oxygen saturation, patient is in no apparent distress, reports mild headache without thunderclap onset, states this is a normal headaches she gets when she is out of her hypertension medication. Discussed with patient will prescribe blood pressure medications, give area clinic and healthcare provider information for her to establish primary care with, will treat mild headache with 600 mg Motrin today in the emergency department. Will give first dose of blood pressure medication in the emergency department today. Patient is thankful, amenable to ED planning and ED discharge planning. Patient's repeat blood pressure is 175/100. All other vital signs within normal limits. Discussed with the patient all findings and diagnostic testing as well as the need to follow-up with their primary care provider for further evaluation and treatment or return to the ED if any new or worsening symptoms. Strict return precautions were also discussed at length, the patient voiced understanding and agreement with the discharge planning. The patient was nontoxic in appearance, in no apparent distress, and hemodynamically stable at the time of disposition. Siena Disclaimer: Siena Disclaimer: This electronic medical record was generated, in whole or in part, using a voice recognition dictation system. Departure Departure Impression: Primary Impression: Medication refill Additional Impressions: Headache Qualified Codes: R51.9 - Headache, unspecified High blood pressure Qualified Codes: I10 - Essential (primary) hypertension Disposition: 01 HOME / SELF CARE / HOMELESS Condition: GOOD Referrals: NO PCP (PCP) Patient Instructions: Hypertension Additional Instructions: You were seen today in the emergency department for blood pressure medication refill. You are also treated with a 600 mg ibuprofen for your headache. You were given your first dose of blood pressure medication. As we discussed I have prescribed your losartan/hydrochlorothiazide medication. I have given you a list of area healthcare providers and clinics for you to establish primary care with. Please call tomorrow for an appointment for ongoing health care management and prescription refills. Thank you for visiting our Emergency Department. It was a pleasure taking care of you today in the emergency department and we appreciate you trusting us with your care. If any additional problems come up don't hesitate to return to visit us. Please follow up with your primary care provider so they can plan additional care if needed and know about the problem that you had. If symptoms worsen come back to the Emergency Department. Any concerning symptoms that start such as chest pain, shortness of air, weakness or numbness on one side of the body, running high fevers or any other concerning symptoms return to the ER. [facility] [address] [place] [address] [facility] [address] [place] [address] [facility] [address] [facility] [place] [address] [email or web address] [address] [place] [address] [facility] [address] [place] [address] [address] [place] [address] [facility] [address] [place] [address] On License Of [facility] [address] [place] [address] On License Of [facility] [address] [place] [address] [facility] [address] [place] [address] Scripts Losartan/Hydrochlorothiazide (HYZAAR 100-25 TABLET) 1 Each Tablet 1 TAB PO DAILY for HTN, #30 TAB 3 Refills Prov: VISHAL HARRELL APRN 11/26/21 VISHAL HARRELL APRN Nov 26, 2021 18:09
[2021-11-26 18:57] VITALS: BP 151/82
== END 2021-11-26 18:14 | disposition home or self-care (01) ==
LOC: ER 17:05
DX: R51.9 Headache, unspecified (principal); I10 Essential (primary) hypertension; F31.9 Bipolar disorder, unspecified; E11.9 Type 2 diabetes mellitus without complications; E78.00 Pure hypercholesterolemia, unspecified; F43.10 Post-traumatic stress disorder, unspecified; Z87.891 Personal history of nicotine dependence; Z88.1 Allergy status to other antibiotic agents; Z88.2 Allergy status to sulfonamides; Z88.5 Allergy status to narcotic agent; Z88.8 Allergy status to other drugs, medicaments and biological substances
CPT/HCPCS: 99284

== ENCOUNTER 2021-11-30 13:15 | Emergency (ER) | payer MEDICARE ==
[~2021-11-30] VITALS: Ht 170.2 cm; Wt 85.0 kg
[~2021-11-30 13:15] MED LIST changes: +LOSA1TAB12 PO
--- NOTE | 2021-11-30 13:27 | PHYS DOC ---
Past Medical History Past Medical History: Bipolar, Diabetes-Type II, High Cholesterol, Hypertension Additional Past Medical Histor: PTSD Past Surgical History: No Surgical History Smoking Status: Former Smoker Alcohol Use: None Drug Use: None General Adult EDM: Chief Complaint: FINGER INJURY HPI: HPI: Patient is a 56 year old female who presents with was at the bus stop and fell forward but try to catch herself with the left hand and she has left index finger pain and swelling. She denies numbness or tingling. Patient rates her aching pain about 7 out of 10. Patient has a history of PTSD, bipolar, high cholesterol, hypertension, diabetes, former smoker. Review of Systems: Review of Systems: Constitutional: Denies fever or chills. [] Eyes: Denies change in visual acuity. [] HENT: Denies nasal congestion or sore throat. [] Respiratory: Denies cough or shortness of breath. [] Cardiovascular: Denies chest pain or + left index finger edema. [] GI: Denies abdominal pain, nausea, vomiting, bloody stools or diarrhea. [] : Denies dysuria. [] Musculoskeletal: Denies back pain or joint pain. + Left index finger [] Integument: Denies rash. [] Neurologic: Denies headache, focal weakness or sensory changes. [] Endocrine: Denies polyuria or polydipsia. [] Lymphatic: Denies swollen glands. [] Psychiatric: Denies depression or anxiety. [] Heart Score: C/O Chest Pain: No Allergies: Allergies: Allergies Coded Allergies Type Severity Reaction Last Updated Verified Sulfa (Sulfonamide Antibiotics) Allergy Intermediate 09/27/21 Yes acetaminophen Allergy Intermediate 09/27/21 Yes clindamycin Allergy Intermediate 09/27/21 Yes doxycycline Allergy Intermediate 09/27/21 Yes exenatide Allergy Intermediate 09/27/21 Yes hydrocodone Allergy Intermediate 09/27/21 Yes vancomycin Allergy Intermediate 09/30/15 Yes Physical Exam: PE: Constitutional: Well developed, well nourished, no acute distress, non-toxic appearance. [] HENT: Normocephalic, atraumatic, bilateral external ears normal, oropharynx moist, no oral exudates, nose normal. [] Eyes: PERRLA, EOMI, conjunctiva normal, no discharge. [] Neck: Normal range of motion, no tenderness, supple, no stridor. [] Cardiovascular:Heart rate regular rhythm, no murmur [] Lungs & Thorax: Bilateral breath sounds clear to auscultation [] Abdomen: Bowel sounds normal, soft, no tenderness, no masses, no pulsatile masses. [] Skin: Warm, dry, no erythema, no rash. [] Back: No tenderness, no CVA tenderness. [] Extremities: Left index finger tenderness, no cyanosis, no clubbing, ROM not intact due to swelling, 2+ edema. [] Neurologic: Alert and oriented X 3, normal motor function, normal sensory function, no focal deficits noted. [] Psychologic: Affect normal, judgement normal, mood normal. [] EKG: EKG: [] Radiology/Procedures: Radiology/Procedures: [] Impression: [facility] [address] [place] [address] IMAGING REPORT Signed PATIENT: ELIZABETH KAM ACCOUNT: [id number] : 1965 LOCATION: ER AGE: 56 SEX: F EXAM STATUS: PRE ER ORD. PHYSICIAN: KLEBER WEAVER APRN REASON: fall, index finger pain and swelling PROCEDURE: HAND LEFT 3V XR HAND_LEFT 3 VIEWS History: Reason: fall, index finger pain and swelling / Spl. Instructions: / History: Technique: 3 views right hand Comparison: None. Findings: Acute second middle phalanx base intra-articular fracture with mild displacement as seen on lateral view. No dislocation. There is adjacent soft tissue swelli ng. Impression: 1. Acute second middle phalanx base intra-articular fracture with displacement. Electronically signed by: Leo Pulido DO (11/30/2021 1:48 PM) [id number] DICTATED and SIGNED BY: LEO PULIDO DO DATE: 11/30/21 9859 Course & Med Decision Making: Course & Med Decision Making Pertinent Labs and Imaging studies reviewed. (See chart for details) See HPI. Alert and oriented x4. Ambulatory steady gait. Speaks in full clear sentences. Radial pulses strong and present. Cap refill less than 2 seconds. There is no nailbed injury. No obvious deformity. There is no full range of motion due to swelling. No joint laxity. No other trauma to wrist or hand. Patient denies hitting her head, dizziness, chest pain, shortness of breath, headache, neck pain, back pain, vomiting. Sensations intact. Skin pink warm and dry although there does look to be some bruising starting at the PIP. Fingers placed in a AlumaFoam splint. She will be given follow-up information for orthopedic. [] Siena Disclaimer: Dragon Disclaimer: This electronic medical record was generated, in whole or in part, using a voice recognition dictation system. Departure Departure Impression: Primary Impression: Fracture of middle phalanx of finger Qualified Codes: S62.621A - Displaced fracture of middle phalanx of left index finger, initial encounter for closed fracture Disposition: HOME / SELF CARE / HOMELESS Condition: STABLE Referrals: NO PCP (PCP) MAJO MOSQUEDA II, MD Patient Instructions: Finger Fracture Additional Instructions: Follow-up with orthopedic doctor in the next week or 2. Leave splint on. Use ice and elevation to help with pain and swelling. Do not put any rings on that finger. Use ibuprofen to help with pain. Scripts Ibuprofen (IBUPROFEN) 600 Mg Tablet 600 MG PO PRN Q6HRS PRN for INFLAMMATION, #30 TAB Prov: KLEBER WEAVER APRN 11/30/21 KLEBER WEAVER APRN Nov 30, 2021 13:27
--- NOTE | 2021-11-30 13:51 | RAD ---
XR HAND_LEFT 3 VIEWS History: Reason: fall, index finger pain and swelling / Spl. Instructions: / History: Technique: 3 views right hand Comparison: None. Findings: Acute second middle phalanx base intra-articular fracture with mild displacement as seen on lateral v iew. No dislocation. There is adjacent soft tissue swelling. Impression: 1. Acute second middle phalanx base intra-articular fracture with displacement. Electronically signed by: Leo Pulido DO (11/30/2021 1:48 PM) [id number]
[2021-11-30] MEDS ORDERED: IBUP-1007 PO (14:03)
[2021-11-30 14:09] VITALS: BP 128/84
== END 2021-11-30 14:12 | disposition home or self-care (01) ==
LOC: ER 13:15
DX: S62.621A Displaced fracture of middle phalanx of left index finger, initial encounter for closed fracture (principal); F31.9 Bipolar disorder, unspecified; E11.9 Type 2 diabetes mellitus without complications; I10 Essential (primary) hypertension; E78.00 Pure hypercholesterolemia, unspecified; F43.10 Post-traumatic stress disorder, unspecified; Z87.891 Personal history of nicotine dependence; Z88.1 Allergy status to other antibiotic agents; Z88.6 Allergy status to analgesic agent; Z88.2 Allergy status to sulfonamides; Z88.5 Allergy status to narcotic agent; W18.39XA Other fall on same level, initial encounter; Y93.89 Activity, other specified; Y92.89 Other specified places as the place of occurrence of the external cause; Y99.8 Other external cause status
CPT/HCPCS: 29130; 73130; 99283

== ENCOUNTER 2021-12-18 06:18 | Emergency (ER) | payer MEDICARE ==
[~2021-12-18] VITALS: Ht 170.2 cm; Wt 62.7 kg
[~2021-12-18 06:18] MED LIST changes: +IBUP-1007 PO
[2021-12-18] MEDS ORDERED: AMLO10TA4 PO (07:05)
[2021-12-18] MEDS ORDERED: CEPH500C PO (07:05)
--- NOTE | 2021-12-18 07:05 | PHYS DOC ---
Past Medical History Past Medical History: Bipolar, Diabetes-Type II, High Cholesterol, Hypertension Additional Past Medical Histor: MULTIPLE MENTAL HEALTH DIAGNOSIS Past Surgical History: No Surgical History Smoking Status: Former Smoker Alcohol Use: None Drug Use: None Adult General Chief Complaint Chief Complaint: FINGER INJURY [facility] HPI Patient is a 56 year old female presenting to the emergency department for evaluation of multiple complaints including finger pain diarrhea hypertension and she says that she falls at times. Patient says that she fell and she scraped her right middle finger and has an abrasion. This occurred several days ago and appears to be slightly red. She says that her tetanus is up-to-date. No bony joint pain rather she is concerned about the skin injury. Patient says her most significant plaint is that she has intermittent diarrhea. She says this has been going on for at least the past 3 months where she feels that she needs to use the restroom and she is homeless and she cannot make it to the bathroom and then she soils her clothes. She says this does not happen every day but maybe happens once every 2 to 3 days where she feels the intense sensation to have a bowel movement and she cannot make it to the bathroom on time but she says this is mostly due to the inaccessibility to the restroom close by. She says she is upset that she soils her clothes and is homeless and has a difficulty getting them cleaned. She also says that she has been falling at times and I asked her if she is getting dizzy or lightheaded and falling and she says no rather she says at times that she thinks she sprained her left ankle and it gives out but she denies any unilateral weakness numbness or tingling. She is supposed to be on hydrochlorothiazide lisinopril for her hypertension but says she stopped taking them a long time ago as she did not like how they made her feel. She says she does not have a primary care provider and wants to be referred to a primary care provider. She is in no acute distress with normal vital signs other than the hypertension noted. Review of Systems Review of Systems Constitutional: Denies fever or chills [] Eyes: Denies change in visual acuity, redness, or eye pain [] HENT: Denies nasal congestion or sore throat [] Respiratory: Denies cough or shortness of breath [] Cardiovascular: No additional information not addressed in HPI [] GI: Denies abdominal pain, nausea, vomiting, bloody stools. + diarrhea [] : Denies dysuria or hematuria [] Musculoskeletal: Denies back pain or joint pain [] Integument: Denies rash. + abrasion Neurologic: Denies headache, focal weakness or sensory changes [] All other systems were reviewed and found to be within normal limits, except as documented in this note. Allergies Allergies Allergies Coded Allergies Type Severity Reaction Last Updated Verified Sulfa (Sulfonamide Antibiotics) Allergy Intermediate 12/18/21 Yes acetaminophen Allergy Intermediate 12/18/21 Yes clindamycin Allergy Intermediate 12/18/21 Yes doxycycline Allergy Intermediate 12/18/21 Yes exenatide Allergy Intermediate 12/18/21 Yes hydrocodone Allergy Intermediate 12/18/21 Yes vancomycin Allergy Intermediate 09/30/15 Yes Physical Exam Physical Exam Constitutional: Well developed, well nourished, no acute distress, non-toxic appearance. [] HENT: Normocephalic, atraumatic, bilateral external ears normal, oropharynx moist, no oral exudates, nose normal. [] Eyes: PERRLA, EOMI, conjunctiva normal, no discharge. [] Neck: Normal range of motion, no tenderness, supple, no stridor. [] Cardiovascular:Heart rate regular rhythm, no murmur [] Lungs & Thorax: Bilateral breath sounds clear to auscultation [] Abdomen: Bowel sounds normal, soft, no tenderness, no masses, no pulsatile masses. [] Skin: Approximate 1 cm circular abrasion to the right middle finger on the pad aspect. There is slight erythema but no warmth or tenderness to palpation. Patient has no pain with flexion or extension of the digit. Back: No tenderness, no CVA tenderness. [] Extremities: No tenderness, no cyanosis, no clubbing, ROM intact, no edema. [] Neurologic: Alert and oriented X 3, normal motor function, normal sensory function, no focal deficits noted. Normal [id number] and [id number] and she ambulates with a normal gait. Current Patient Data Vital Signs Vital Signs Date Time Temp Pulse Resp B/P (MAP) Pulse Ox O2 Delivery O2 Flow Rate FiO2 12/18/21 06:28 97.8 86 18 195/123 (147) 100 Room Air 97.8 EKG EKG [] Radiology/Procedures Radiology/Procedures [] Course & Med Decision Making Course & Med Decision Making Patient has a normal neurologic exam and patient did not want blood tests or imaging at this time as she says she wants to see a primary care provider and have further referral. I told her I could check her electrolytes for the diarrhea and do a CT of her head to rule out intracranial process for the falls but she refused both of these. Patient did consent to being started on the new blood pressure medication and I told her it may make her feel dizzy at first but her blood pressure is quite elevated and she needs to get started on a new medicine. I will start her on Keflex for her finger. For the diarrhea I told her she could take Imodium but she says it is not a constant diarrhea rather it happens intermittently. I told her I do not have a quick fix for this but she likely has a diet intolerance given this comes and goes and is unpredictable and will need further testing. I told her she will need to follow with her primary care provider for this and she may need GI referral. Given patient appears well with normal vital signs other than the hypertension and has normal vital signs and is asking to go home I will discharge her in stable condition with a prescription for Norvasc and Keflex told to follow with a primary care provider soon as possible preferably within the next 2 to 3 days and come back to [facility] department sooner with worsening pain neurologic changes or other general concerns. Patient aware and agreeable with plan and verbalized understanding of the above instructions. Dragon Disclaimer Dragon Disclaimer This electronic medical record was generated, in whole or in part, using a voice recognition dictation system. Departure Departure Impression: Primary Impression: Finger abrasion Additional Impressions: Hypertension Diarrhea Multiple falls Disposition: HOME / SELF CARE / HOMELESS Condition: STABLE Referrals: NO PCP (PCP) Patient Instructions: Arterial Hypertension Scripts Amlodipine Besylate (NORVASC) 10 Mg Tablet 10 MG PO DAILY for 30 Days, #30 TAB Prov: LIGIA RUIZ DO 12/18/21 Cephalexin (KEFLEX) 500 Mg Capsule 1 CAP PO BID, #10 CAP Prov: LIGIA RUIZ DO 12/18/21 Problem Qualifiers LIGIA RUIZ DO Dec 18, 2021 07:05
[2021-12-18 07:10] VITALS: BP 183/96
== END 2021-12-18 07:22 | disposition home or self-care (01) ==
LOC: ER 06:18
DX: S60.412A Abrasion of right middle finger, initial encounter (principal); R19.7 Diarrhea, unspecified; I10 Essential (primary) hypertension; F31.9 Bipolar disorder, unspecified; E11.9 Type 2 diabetes mellitus without complications; E78.00 Pure hypercholesterolemia, unspecified; Z87.891 Personal history of nicotine dependence; Z88.1 Allergy status to other antibiotic agents; Z88.8 Allergy status to other drugs, medicaments and biological substances; Z88.5 Allergy status to narcotic agent; W18.39XA Other fall on same level, initial encounter; Y93.89 Activity, other specified; Y92.89 Other specified places as the place of occurrence of the external cause; Y99.8 Other external cause status
CPT/HCPCS: 99283